=== PATIENT | female | born 1990 | race American Indian/Alaskan Native ===

== ENCOUNTER 2016-08-30 12:15 | Emergency (ER) | payer OTHER ==
[2016-08-30 12:32] VITALS: BP 141/88
[2016-08-30] MEDS ORDERED: CLEOCIN IM ONE (14:27)
[2016-08-30] MEDS ORDERED: NORCO 5/325 PO ONE (14:27)
[2016-08-30] MEDS ORDERED: ZOFRAN ODT PO ONE (14:27)
--- NOTE | 2016-08-30 14:38 | Emergency Department Report ---
ED ENT HPI - General Chief complaint: Dental/Oral Stated complaint: RT SIDE TOOTHACE Time Seen by Provider: 08/30/16 14:17 Source: patient Mode of arrival: Ambulatory Limitations: No Limitations - History of Present Illness Initial comments: PT c/o toothache x 1 week. PT states the last time she saw a Dentist was over 2 years ago. PT states her jaw has been swollen x 3 days. PT states this morning she noticed a bad taste in her mouth and she has noticed some blood. PT states she has tried taking Aleve, Motrin, ASA and Tylenol for pain but no relief. PT states last dose of OTC medication was last night. MD complaint: tooth pain Onset/Timin -: Gradual, week(s) Location: tooth # 1 - pain and gum edema Severity scale (0 -10): 10 Quality: sharp Consistency: constant Worsens with: other (palpation ) Context- Dental: history of dental caries, poor dental care (last dental visit over 2 years ago ) Associated Symptoms: gum swelling, toothache. denies: fever, cough, sore throat - Related Data Previous Rx's Medication Instructions Recorded Last Taken Type ALBUTEROL Inhaler [ProAir HFA 2 puff IH QID PRN #1 inhalation 03/20/15 Unknown Rx Inhaler] Albuterol *Only Ed* [Proventil 2.5 mg IH Q6H PRN #30 nebu 03/20/15 Unknown Rx 0.5% NEBS] Acetaminophen/Codeine [Tylenol #3] 1 tab PO Q6H PRN #12 tab 08/30/16 Unknown Rx Clindamycin [Clindamycin CAP] 300 mg PO Q8H #30 cap 08/30/16 Unknown Rx Allergies Allergy/AdvReac Type Severity Reaction Status Date / Time egg Allergy Rash Verified 03/20/15 02:17 Penicillins Allergy Swelling Verified 03/20/15 02:17 tomato Allergy Rash Verified 03/20/15 02:17 ED Dental HPI - General Chief complaint: Dental/Oral Stated complaint: RT SIDE TOOTHACE Time Seen by Provider: 08/30/16 14:17 Source: patient Mode of arrival: Ambulatory Limitations: No Limitations - Related Data Previous Rx's Medication Instructions Recorded Last Taken Type ALBUTEROL Inhaler [ProAir HFA 2 puff IH QID PRN #1 inhalation 03/20/15 Unknown Rx Inhaler] Albuterol *Only Ed* [Proventil 2.5 mg IH Q6H PRN #30 nebu 03/20/15 Unknown Rx 0.5% NEBS] Acetaminophen/Codeine [Tylenol #3] 1 tab PO Q6H PRN #12 tab 08/30/16 Unknown Rx Clindamycin [Clindamycin CAP] 300 mg PO Q8H #30 cap 08/30/16 Unknown Rx Allergies Allergy/AdvReac Type Severity Reaction Status Date / Time egg Allergy Rash Verified 03/20/15 02:17 Penicillins Allergy Swelling Verified 03/20/15 02:17 tomato Allergy Rash Verified 03/20/15 02:17 ED Review of Systems ROS: Stated complaint: RT SIDE TOOTHACE Other details as noted in HPI Comment: All other systems reviewed and negative Constitutional: denies: chills, fever ENT: dental pain, other (bad taste in mouth, swallowing makes pt feel nauseated - swelling to R lower jaw). denies: throat pain Respiratory: denies: cough Gastrointestinal: nausea. denies: abdominal pain, vomiting Neurological: headache ED Past Medical Hx - Past Medical History Hx Asthma: Yes Additional medical history: Anxiety attacks - Surgical History Hx Appendectomy: Yes - Social History Smoking Status: Current Every Day Smoker Substance Use Type: None - Medications Home Medications: Home Medications Medication Instructions Recorded Confirmed Last Taken Type ALBUTEROL Inhaler [ProAir HFA 2 puff IH QID PRN #1 inhalation 03/20/15 Unknown Rx Inhaler] Albuterol *Only Ed* [Proventil 2.5 mg IH Q6H PRN #30 nebu 03/20/15 Unknown Rx 0.5% NEBS] Acetaminophen/Codeine [Tylenol #3] 1 tab PO Q6H PRN #12 tab 08/30/16 Unknown Rx Clindamycin [Clindamycin CAP] 300 mg PO Q8H #30 cap 08/30/16 Unknown Rx ED Physical Exam - General Limitations: No Limitations General appearance: alert, other (appears in pain ) - Head Head exam: Present: atraumatic, normocephalic, other (R jaw swelling noted. ) - Eye Eye exam: Present: normal appearance. Absent: conjunctival injection - ENT ENT exam: Present: normal orophraynx, mucous membranes moist, normal external ear exam - Expanded ENT Exam Expanded TM/Canal exam: Cerumen Impaction: Right TM, Left TM Mouth exam: Absent: drooling, trismus Teeth exam: Present: dental caries, dental tenderness # (tooth 27 and 29, tooth 28 abscent. ), gingival enlargement (+ abscess ) Throat exam: Positive: normal inspection. Negative: tonsillar erythema, tonsillomegaly, tonsillar exudate - Neck Neck exam: Present: normal inspection. Absent: tenderness - Respiratory Respiratory exam: Present: normal lung sounds bilaterally. Absent: respiratory distress - Cardiovascular Cardiovascular Exam: Present: regular rate, normal rhythm, normal heart sounds - GI/Abdominal GI/Abdominal exam: Present: soft. Absent: tenderness - Extremities Exam Extremities exam: Present: normal inspection, full ROM - Back Exam Back exam: Present: normal inspection, full ROM - Neurological Exam Neurological exam: Present: alert, oriented X3 - Psychiatric Psychiatric exam: Present: normal affect, normal mood - Skin Skin exam: Present: warm, dry, intact, erythema (to R mandible ) ED Course Vital Signs 08/30/16 12:28 Temperature 98.7 F Pulse Rate 56 L Respiratory 20 Rate Blood Pressure 141/88 O2 Sat by Pulse 100 Oximetry - Reevaluation(s) Reevaluation #1: 08/30/16 15:42 PT aware of lab result. PT gives verbal consent for I and D of abscess. PT aware of cerumen impaction on PE. PT reports always having wax in her ears, she states no improvement after cleaning ears with qtips. PT given verbal instructions on the proper way to clean ears. Reevaluation #2: 08/30/16 16:21 pt was able to tolerate po liquids while in ED. PT tolerated needle aspiration of abscess. PT aware she will need close dental follow up. PT given strict return precautions. - I & D Right Lower Jaw Type of Procedure: Simple Site: tooth 28 Blade Size: 18 guage needle Progress: 0.5cc lidocaine 1% injected to site. 18 gauge needle used to aspirate small amount of purulent drainage. - Pulse Oximetry Interpretation Digit-Finger Initial Pulse Oximetry Readin Actions Taken: none ED Medical Decision Making - Differential Diagnosis toothache, dental abscess, Critical Care Time: No Critical care attestation.: If time is entered above; I have spent that time in minutes in the direct care of this critically ill patient, excluding procedure time. ED Disposition Clinical Impression: Dental abscess, Bilateral impacted cerumen Disposition: DISCHARGED TO HOME OR SELFCARE Is pt being admited?: No Does the pt Need Aspirin: No Condition: Stable Instructions: Dental Abscess (ED) Additional Instructions: good oral hygiene Swish and spit with warm salt water four times a day Finish all antibiotics, you can take them with food if they are making you nauseated No driving or ETOH after taking Tylenol #3 Continue taking OTC Aleve Prescriptions: Acetaminophen/Codeine [Tylenol #3] 1 tab PO Q6H PRN #12 tab PRN Reason: Pain , Severe (7-10) Clindamycin [Clindamycin CAP] 300 mg PO Q8H #30 cap Referrals: [facility] [Outside] - 3-5 Days FALLON LEIVA MD [Staff Physician] - 3-5 Days PRIMARY CARE, [Primary Care Provider] - 3-5 Days Forms: Work/School Release Form(ED) Time of Disposition: 16:23
[2016-08-30] MEDS ORDERED: XYLOCAINE 1% MPF 5 mL INFILTRATI ONE (15:44)
== END 2016-08-30 16:28 | disposition home or self-care (01) ==
LOC: ED 12:15
DX: K04.7 Periapical abscess without sinus (principal); H61.23 Impacted cerumen, bilateral; J45.909 Unspecified asthma, uncomplicated; F17.200 Nicotine dependence, unspecified, uncomplicated; Z88.0 Allergy status to penicillin; Z91.012 Allergy to eggs; Z91.018 Allergy to other foods
CPT/HCPCS: 81025; 96372; Q0162

== ENCOUNTER 2017-09-07 12:06 | Emergency (ER) | payer OTHER ==
[2017-09-07] MEDS ORDERED: TYLENOL PO ONE (13:10)
--- NOTE | 2017-09-07 13:12 | Emergency Department Report ---
Blank Doc - Documentation Documentation: Patient is a 26-year-old [place] Citizen female who is presenting with low vaginal discomfort as well as vaginal bleeding. Patient states that when she wiped to go to bathroom this morning she saw blood. Patient is . Patient does not know how far along she is she knows that she took a test at home which was positive. Patient's had 3 months of abnormal periods. Patient will be receiving an ultrasound as well as a beta Quant and urinalysis.
[2017-09-07 14:06] LABS: Bilirubin,Urine NEG (Negative); Blood,Urine LG (Negative); Color,Urine Yellow (Yellow); Mucus,Urine FEW /HPF; Protein,Urine <15 mg/dL mg/dL (Negative); Urobilinogen,Urine < 2.0 mg/dL (<2.0)
--- NOTE | 2017-09-07 15:12 | Ultrasound Report ---
Pelvic and transvaginal sonography: History: Vaginal bleeding. Findings: Uterus measures ultrasound a 3.3 x 4.6 cm. Endometrial thickness 5 mm. No fluid or mass within the endometrium. Right ribs 8.5 x 2.2 x 2.2 cm. No mass. Left ovary 3.1 x 1.9 x 2.5 cm. Cyst in the left ovary measures 6.5 cm. Minimal fluid in the cul-de-sac. Impression: Cyst left ovary. Minimal fluid in the cul-de-sac
--- NOTE | 2017-09-07 15:43 | Emergency Department Report ---
ED Female HPI - General Chief complaint: Abdominal Pain Stated complaint: ABD PAIN Time Seen by Provider: 09/07/17 12:53 Source: patient Mode of arrival: Ambulatory Limitations: No Limitations - History of Present Illness Initial comments: 26F past medical history appendectomy, anxiety presents for evaluation of lower abdominal pain. Patient states that she had positive test recently. Has had abnormal menses for several months. Denies fevers chills nausea vomiting. Patient is awake alert and oriented 3 nontoxic-appearing. Denies dysuria or hematuria or increased urinary frequency. States she has had some intermittent vaginal bleeding. MD Complaint: vaginal bleeding -: month(s) Severity: mild Severity scale (0 -10): 3 Quality: cramping Consistency: intermittent Improves with: none Worsens with: none Are you Now?: No Last Menstrual Period: 08/06/17 EDC: 05/13/18 Associated Symptoms: vaginal bleeding - Related Data Sexually active: Yes Previous Rx's Medication Instructions Recorded Last Taken Type ALBUTEROL Inhaler [ProAir HFA 2 puff IH QID PRN #1 inhalation 03/20/15 Unknown Rx Inhaler] Albuterol *Only Ed* [Proventil 2.5 mg IH Q6H PRN #30 nebu 03/20/15 Unknown Rx 0.5% NEBS] Acetaminophen/Codeine [Tylenol #3] 1 tab PO Q6H PRN #12 tab 08/30/16 Unknown Rx Clindamycin [Clindamycin CAP] 300 mg PO Q8H #30 cap 08/30/16 Unknown Rx Ibuprofen [Motrin] 600 mg PO Q8H PRN #20 tablet 09/07/17 Unknown Rx Allergies Allergy/AdvReac Type Severity Reaction Status Date / Time egg Allergy Rash Verified 03/20/15 02:17 Penicillins Allergy Swelling Verified 03/20/15 02:17 tomato Allergy Rash Verified 03/20/15 02:17 ED Review of Systems ROS: Stated complaint: ABD PAIN Other details as noted in HPI Constitutional: denies: chills, fever Eyes: denies: eye pain, eye discharge, vision change ENT: denies: ear pain, throat pain Respiratory: denies: cough, shortness of breath, wheezing Cardiovascular: denies: chest pain, palpitations Endocrine: no symptoms reported Gastrointestinal: denies: abdominal pain, nausea, diarrhea Genitourinary: abnormal menses. denies: urgency, dysuria, discharge Musculoskeletal: denies: back pain, joint swelling, arthralgia Skin: denies: rash, lesions Neurological: denies: headache, weakness, paresthesias Psychiatric: denies: anxiety, depression Hematological/Lymphatic: denies: easy bleeding, easy bruising ED Past Medical Hx - Past Medical History Hx Asthma: Yes Additional medical history: Anxiety attacks - Surgical History Hx Appendectomy: Yes - Social History Smoking Status: Never Smoker Substance Use Type: None - Medications Home Medications: Home Medications Medication Instructions Recorded Confirmed Last Taken Type ALBUTEROL Inhaler [ProAir HFA 2 puff IH QID PRN #1 inhalation 03/20/15 Unknown Rx Inhaler] Albuterol *Only Ed* [Proventil 2.5 mg IH Q6H PRN #30 nebu 03/20/15 Unknown Rx 0.5% NEBS] Acetaminophen/Codeine [Tylenol #3] 1 tab PO Q6H PRN #12 tab 08/30/16 Unknown Rx Clindamycin [Clindamycin CAP] 300 mg PO Q8H #30 cap 08/30/16 Unknown Rx Ibuprofen [Motrin] 600 mg PO Q8H PRN #20 tablet 09/07/17 Unknown Rx ED Physical Exam - General Limitations: No Limitations General appearance: alert, in no apparent distress - Head Head exam: Present: atraumatic, normocephalic - Eye Eye exam: Present: normal appearance, PERRL, EOMI - ENT ENT exam: Present: mucous membranes moist - Neck Neck exam: Present: normal inspection - Respiratory Respiratory exam: Present: normal lung sounds bilaterally. Absent: respiratory distress - Cardiovascular Cardiovascular Exam: Present: regular rate, normal rhythm. Absent: systolic murmur, diastolic murmur, rubs, gallop - GI/Abdominal GI/Abdominal exam: Present: soft (abdomen soft nontender nondistended), normal bowel sounds - External exam: Present: normal external exam Speculum exam: Present: normal speculum exam Bi-manual exam: Present: normal bi-manual exam - Extremities Exam Extremities exam: Present: normal inspection - Back Exam Back exam: Present: normal inspection - Neurological Exam Neurological exam: Present: alert, oriented X3, CN II-XII intact, normal gait - Psychiatric Psychiatric exam: Present: normal affect, normal mood - Skin Skin exam: Present: warm, dry, intact, normal color. Absent: rash ED Course Vital Signs 09/07/17 12:09 Temperature 98.6 F Pulse Rate 79 Respiratory 16 Rate Blood Pressure 121/77 ED Medical Decision Making - Medical Decision Making A/P: Irregular menses, test, missed AB 1-hCG level negative, ultrasound shows a left-sided ovarian cyst no progressive conception or IUP. RH+ 2-follow-up with SHIPPING/RECEIVING CLERK 3-Motrin when necessary Critical care attestation.: If time is entered above; I have spent that time in minutes in the direct care of this critically ill patient, excluding procedure time. ED Disposition Clinical Impression: test negative, Missed Disposition: - TO HOME OR SELFCARE Is pt being admited?: No Does the pt Need Aspirin: No Condition: Stable Instructions: Ovarian Cyst (ED), Spontaneous Miscarriage (ED) Prescriptions: Ibuprofen [Motrin] 600 mg PO Q8H PRN #20 tablet PRN Reason: Pain Referrals: [facility] [Provider Group] - 3-5 Days [facility] [Provider Group] - 3-5 Days Forms: Work/School Release Form(ED) Time of Disposition: 15:46
[2017-09-07 15:59] VITALS: BP 131/76
== END 2017-09-07 15:57 | disposition home or self-care (01) ==
LOC: ED 12:06
DX: O02.1 Missed abortion (principal); Z91.012 Allergy to eggs; Z88.0 Allergy status to penicillin; Z91.018 Allergy to other foods
CPT/HCPCS: 36415; 76830; 76856; 81001; 84702; 86900; 86901; 99284

== ENCOUNTER 2019-01-17 13:00 | Emergency (ER) | payer SELFPAY ==
[2019-01-17 13:08] VITALS: BP 128/77
--- NOTE | 2019-01-17 13:11 | Emergency Department Report ---
ED ENT HPI - General Chief complaint: Dental/Oral Stated complaint: LFT SIDE MOUTH/EAR PAIN Time Seen by Provider: 01/17/19 13:05 Source: patient Mode of arrival: Ambulatory Limitations: No Limitations - History of Present Illness Initial comments: This is a 28-year-old female nontoxic well in appearance with no signs of distress presents to the ED with complaint of toothache. Patient denies any facial swelling. Denies following up with a dentist. Denies any fever, chills, headache, nausea, vomiting, chest pain or SOB. Denies any other complaints. Denies any allergies. MD complaint: tooth pain -: week(s) Location: tooth # Severity: mild Severity scale (0 -10): 8 Quality: aching Consistency: constant Improves with: none Worsens with: none Context- Dental: history of dental caries, poor dental care Associated Symptoms: gum swelling, toothache. denies: fever, cough, pain with swallowing, sore throat, tinnitus, hearing loss, discharge from ear, rhinorrhea - Related Data Previous Rx's Medication Instructions Recorded Last Taken Type ALBUTEROL Inhaler (OR & NICU) 2 puff IH QID PRN #1 inhalation 03/20/15 Unknown Rx [ProAir HFA Inhaler] Albuterol *Only Ed* [Proventil 2.5 mg IH Q6H PRN #30 nebu 03/20/15 Unknown Rx 0.5% NEBS] Acetaminophen/Codeine [Tylenol #3] 1 tab PO Q6H PRN #12 tab 08/30/16 Unknown Rx Clindamycin [Clindamycin CAP] 300 mg PO Q8H #30 cap 08/30/16 Unknown Rx Ibuprofen [Motrin] 600 mg PO Q8H PRN #20 tablet 09/07/17 Unknown Rx Acetaminophen/Codeine [Tylenol 1 tab PO Q6H PRN #12 tab 01/17/19 Unknown Rx /Codeine # 3 tab] Chlorhexidine Mouthwash [Peridex] 15 ml MM BID #1 bottle 01/17/19 Unknown Rx Clindamycin [Clindamycin CAP] 300 mg PO Q8H #21 cap 01/17/19 Unknown Rx Allergies Allergy/AdvReac Type Severity Reaction Status Date / Time egg Allergy Rash Verified 03/20/15 02:17 Penicillins Allergy Swelling Verified 03/20/15 02:17 tomato Allergy Rash Verified 03/20/15 02:17 ED Dental HPI - General Chief complaint: Dental/Oral Stated complaint: LFT SIDE MOUTH/EAR PAIN Time Seen by Provider: 01/17/19 13:05 Source: patient Mode of arrival: Ambulatory Limitations: No Limitations - Related Data Previous Rx's Medication Instructions Recorded Last Taken Type ALBUTEROL Inhaler (OR & NICU) 2 puff IH QID PRN #1 inhalation 03/20/15 Unknown Rx [ProAir HFA Inhaler] Albuterol *Only Ed* [Proventil 2.5 mg IH Q6H PRN #30 nebu 03/20/15 Unknown Rx 0.5% NEBS] Acetaminophen/Codeine [Tylenol #3] 1 tab PO Q6H PRN #12 tab 08/30/16 Unknown Rx Clindamycin [Clindamycin CAP] 300 mg PO Q8H #30 cap 08/30/16 Unknown Rx Ibuprofen [Motrin] 600 mg PO Q8H PRN #20 tablet 09/07/17 Unknown Rx Acetaminophen/Codeine [Tylenol 1 tab PO Q6H PRN #12 tab 01/17/19 Unknown Rx /Codeine # 3 tab] Chlorhexidine Mouthwash [Peridex] 15 ml MM BID #1 bottle 01/17/19 Unknown Rx Clindamycin [Clindamycin CAP] 300 mg PO Q8H #21 cap 01/17/19 Unknown Rx Allergies Allergy/AdvReac Type Severity Reaction Status Date / Time egg Allergy Rash Verified 03/20/15 02:17 Penicillins Allergy Swelling Verified 03/20/15 02:17 tomato Allergy Rash Verified 03/20/15 02:17 ED Review of Systems ROS: Stated complaint: LFT SIDE MOUTH/EAR PAIN Other details as noted in HPI Constitutional: denies: chills, fever Eyes: denies: eye pain, eye discharge, vision change ENT: dental pain. denies: ear pain, throat pain Respiratory: denies: cough, shortness of breath, wheezing Cardiovascular: denies: chest pain, palpitations Endocrine: no symptoms reported Gastrointestinal: denies: abdominal pain, nausea, diarrhea Genitourinary: denies: urgency, dysuria, discharge Musculoskeletal: denies: back pain, joint swelling, arthralgia Skin: denies: rash, lesions Neurological: denies: headache, weakness, paresthesias Psychiatric: denies: anxiety, depression Hematological/Lymphatic: denies: easy bleeding, easy bruising ED Past Medical Hx - Past Medical History Hx Asthma: Yes Additional medical history: Anxiety attacks - Surgical History Hx Appendectomy: Yes - Social History Smoking Status: Never Smoker Substance Use Type: None - Medications Home Medications: Home Medications Medication Instructions Recorded Confirmed Last Taken Type ALBUTEROL Inhaler (OR & NICU) 2 puff IH QID PRN #1 inhalation 03/20/15 Unknown Rx [ProAir HFA Inhaler] Albuterol *Only Ed* [Proventil 2.5 mg IH Q6H PRN #30 nebu 03/20/15 Unknown Rx 0.5% NEBS] Acetaminophen/Codeine [Tylenol #3] 1 tab PO Q6H PRN #12 tab 08/30/16 Unknown Rx Clindamycin [Clindamycin CAP] 300 mg PO Q8H #30 cap 08/30/16 Unknown Rx Ibuprofen [Motrin] 600 mg PO Q8H PRN #20 tablet 09/07/17 Unknown Rx Acetaminophen/Codeine [Tylenol 1 tab PO Q6H PRN #12 tab 01/17/19 Unknown Rx /Codeine # 3 tab] Chlorhexidine Mouthwash [Peridex] 15 ml MM BID #1 bottle 01/17/19 Unknown Rx Clindamycin [Clindamycin CAP] 300 mg PO Q8H #21 cap 01/17/19 Unknown Rx ED Physical Exam - General Limitations: No Limitations General appearance: alert, in no apparent distress - Head Head exam: Present: atraumatic, normocephalic - Expanded ENT Exam Expanded Ear exam: Present: normal external inspection Mouth exam: Present: normal external inspection. Absent: drooling, trismus, muffled voice Teeth exam: Present: dental caries, fractured tooth #, dental tenderness #, gingival enlargement, other (no swelling) 1 - Fractured, Dental Tenderness Throat exam: Positive: normal inspection, other (uvula midline). Negative: tonsillar erythema, tonsillomegaly, tonsillar exudate, R peritonsillar mass, L peritonsillar mass - Neck Neck exam: Present: normal inspection, full ROM. Absent: tenderness, meningismus, lymphadenopathy - Extremities Exam Extremities exam: Present: normal inspection, full ROM - Back Exam Back exam: Present: normal inspection, full ROM - Neurological Exam Neurological exam: Present: alert, oriented X3, normal gait - Psychiatric Psychiatric exam: Present: normal affect, normal mood - Skin Skin exam: Present: warm, dry, intact, normal color. Absent: rash ED Course - Reevaluation(s) Reevaluation #1: 01/17/19 13:08 Patient is speaking in full sentences with no signs of distress noted. ED Medical Decision Making - Medical Decision Making Patient was instructed to Follow-up with a dentist doctor in 3-5 days or if symptoms worsen and continue return to emergency room as soon as possible. At time of discharge, the patient does not seem toxic or ill in appearance. No acute signs of distress noted. Patient agrees to discharge treatment plan of care. No further questions noted by the patient. Critical care attestation.: If time is entered above; I have spent that time in minutes in the direct care of this critically ill patient, excluding procedure time. ED Disposition Clinical Impression: Dental caries, Gingivitis Disposition: DC- TO HOME OR SELFCARE Is pt being admited?: No Does the pt Need Aspirin: No Condition: Stable Instructions: Acetaminophen/Codeine (By mouth), Dental Caries (ED), Gingivitis (ED) Additional Instructions: Follow-up with a dentist doctor in 3-5 days or if symptoms worsen and continue return to emergency room as soon as possible. Prescriptions: Clindamycin [Clindamycin CAP] 300 mg PO Q8H #21 cap Chlorhexidine Mouthwash [Peridex] 15 ml MM BID #1 bottle Acetaminophen/Codeine [Tylenol /Codeine # 3 tab] 1 tab PO Q6H PRN #12 tab PRN Reason: Pain , Severe (7-10) Referrals: PRIMARY CARE, [Referring] - 3-5 Days GIOVANNY LANDIS MD [Staff Physician] - 3-5 Days [facility] [Outside] - 3-5 Days Forms: Work/School Release Form(ED)
== END 2019-01-17 13:36 | disposition home or self-care (01) ==
LOC: ED 13:00
DX: K02.9 Dental caries, unspecified (principal); K05.10 Chronic gingivitis, plaque induced; J45.909 Unspecified asthma, uncomplicated; F41.9 Anxiety disorder, unspecified; K03.81 Cracked tooth; K06.1 Gingival enlargement; Z79.899 Other long term (current) drug therapy; Z91.012 Allergy to eggs; Z88.0 Allergy status to penicillin; Z91.018 Allergy to other foods

== ENCOUNTER 2019-08-01 12:03 | Emergency (ER) | payer SELFPAY ==
--- NOTE | 2019-08-01 12:17 | Emergency Department Report ---
Blank Doc - Documentation Documentation: 28-year-old female that presents with headache and blurry vision. Descirbes h eadache as worse and different type of headache. Denies any head injuries or trauma. Exam: neuro exam within normal limits This initial assessment/diagnostic orders/clinical plan/treatment(s) is/are subject to change based on patient's health status, clinical progression and re- assessment by fellow clinical providers in the ED. Further treatment and workup at subsequent clinical providers discretion. Patient/guardians urged not to elope from the ED as their condition may be serious if not clinically assessed and managed. Initial orders include: 1- Patient sent to [facility] for further evaluation and treatment
[2019-08-01 12:18] VITALS: BP 128/77
== END 2019-08-01 13:55 ==
LOC: ED 12:03
DX: G43.909 Migraine, unspecified, not intractable, without status migrainosus (principal)
CPT/HCPCS: 99281

== ENCOUNTER 2020-11-16 20:46 | Emergency (ER) | payer OTHER ==
[2020-11-16 20:58] VITALS: BP 124/77
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
== END 2020-11-16 22:50 | disposition home or self-care (01) ==
LOC: ED 20:46
DX: S39.012A Strain of muscle, fascia and tendon of lower back, initial encounter (principal); F17.200 Nicotine dependence, unspecified, uncomplicated; J45.909 Unspecified asthma, uncomplicated; Z90.49 Acquired absence of other specified parts of digestive tract; Z79.899 Other long term (current) drug therapy; Z88.0 Allergy status to penicillin; Z91.012 Allergy to eggs; Z91.018 Allergy to other foods; V49.49XA Driver injured in collision with other motor vehicles in traffic accident, initial encounter; Y92.410 Unspecified street and highway as the place of occurrence of the external cause; Y93.89 Activity, other specified; Y99.8 Other external cause status

== ENCOUNTER 2021-07-12 12:46 | Emergency (ER) | payer OTHER ==
--- NOTE | 2021-07-12 13:39 | Emergency Department Report ---
ED Head Trauma HPI - General Chief complaint: Head Injury Stated complaint: HIT HEAD ON SHELF Time Seen by Provider: 07/12/21 13:20 Source: patient Mode of arrival: Ambulatory Limitations: No Limitations - History of Present Illness Initial comments: Chief complaint: "My job sent me here." HPI: This is a 30-year-old female with history of asthma who presents with head injury while working. Her head struck the corner of a cabinet. She has an abrasion in her front scalp. No loss of consciousness. She had transient blurry vision which lasted several seconds. No vomiting. No other injury. Pain is mild. Complaint: head injury -: Sudden, This afternoon Mechanism of Injury: work related injury Location: frontal Loss of Consciousness: no Previous Trauma to this Area: No Place: work Radiation: none Severity: mild Severity scale (0 -10): 3 Consistency: constant Other Injuries: none, other (Superficial abrasion) Associated Symptoms: denies other symptoms - Related Data Previous Rx's Medication Instructions Recorded Last Taken Type Ibuprofen [Motrin 600 MG tab] 600 mg PO Q8H PRN #20 tablet 11/16/20 Unknown Rx methOCARBAMOL [Robaxin TAB] 500 mg PO Q6H PRN #40 tablet 11/16/20 Unknown Rx Allergies/Adverse reactions: Allergies Allergy/AdvReac Type Severity Reaction Status Date / Time egg Allergy Rash Verified 07/12/21 13:14 Penicillins Allergy Swelling Verified 07/12/21 13:14 tomato Allergy Rash Verified 07/12/21 13:14 ED Review of Systems ROS: Stated complaint: HIT HEAD ON SHELF Other details as noted in HPI Comment: All other systems reviewed and negative Constitutional: denies: chills Respiratory: denies: cough, shortness of breath Cardiovascular: denies: chest pain ED Past Medical Hx - Past Medical History Previous Medical History?: Yes Hx Asthma: Yes Additional medical history: Anxiety attacks - Surgical History Past Surgical History?: Yes Hx Appendectomy: Yes - Social History Smoking Status: Current Every Day Smoker Substance Use Type: None - Medications Home Medications: Home Medications Medication Instructions Recorded Confirmed Last Taken Type Ibuprofen [Motrin 600 MG tab] 600 mg PO Q8H PRN #20 tablet 11/16/20 Unknown Rx methOCARBAMOL [Robaxin TAB] 500 mg PO Q6H PRN #40 tablet 11/16/20 Unknown Rx ED Physical Exam - General Limitations: No Limitations General appearance: alert, in no apparent distress - Head Head exam: Present: other (3 cm central superficial abrasion skin avulsion of the scalp vertical beginning from the hairline, underlying superficial 3 cm area of swelling without bleeding) - Eye Eye exam: Present: normal appearance - ENT ENT exam: Present: mucous membranes moist - Neck Neck exam: Present: normal inspection - Respiratory Respiratory exam: Present: normal lung sounds bilaterally. Absent: respiratory distress, wheezes, rales, rhonchi - Cardiovascular Cardiovascular Exam: Present: regular rate, normal rhythm, normal heart sounds. Absent: systolic murmur, diastolic murmur, rubs, gallop - GI/Abdominal GI/Abdominal exam: Present: soft, normal bowel sounds. Absent: distended, tenderness, guarding, rebound - Extremities Exam Extremities exam: Present: normal inspection - Back Exam Back exam: Present: normal inspection - Neurological Exam Neurological exam: Present: alert, oriented X3, normal gait - Expanded Neurological Exam Expanded Patient oriented to: Present: person, place, time Speech: Present: fluid speech Cranial nerves: EOM's Intact: Normal Sensory exam: Upper Extremity Light Touch: Normal Motor strength exam: RUE: 5, LUE: 5, RLE: 5, LLE: 5 Best Eye Response (Vee): (4) open spontaneously Best Motor Response ([place]): (6) obeys commands Best Verbal Response (Vee): (5) oriented [place] Total: 15 - Psychiatric Psychiatric exam: Present: normal affect, normal mood - Skin Skin exam: Present: warm, dry, normal color. Absent: rash ED Course Vital Signs 07/12/21 13:11 Temperature 98.4 F Pulse Rate 66 Respiratory 16 Rate Blood Pressure 139/80 O2 Sat by Pulse 100 Oximetry - Medical Decision Making Close head injury without loss of consciousness. Currently neurologically intact. Superficial skin avulsion does not require suture repair. Recommended rest hydration ibuprofen as needed. I have completed documentation workman compensation form as requested by employee and employer. Critical care attestation.: If time is entered above; I have spent that time in minutes in the direct care of this critically ill patient, excluding procedure time. ED Disposition Clinical Impression: Closed head injury, Scalp hematoma, Scalp abrasion Disposition: HOME / SELF CARE / HOMELESS Is pt being admited?: No Does the pt Need Aspirin: No Condition: Stable Instructions: Head Injury, Adult, [id number], Facial or Scalp Contusion, [id number] Forms: Work/School Release Form(ED)
[2021-07-12 14:37] VITALS: BP 122/78
== END 2021-07-12 14:37 | disposition home or self-care (01) ==
LOC: ED 12:46
DX: S09.90XA Unspecified injury of head, initial encounter (principal); S00.03XA Contusion of scalp, initial encounter; S00.01XA Abrasion of scalp, initial encounter; Z88.0 Allergy status to penicillin; F17.200 Nicotine dependence, unspecified, uncomplicated; J45.909 Unspecified asthma, uncomplicated; X58.XXXA Exposure to other specified factors, initial encounter; Y93.89 Activity, other specified; Y92.89 Other specified places as the place of occurrence of the external cause; Y99.8 Other external cause status
CPT/HCPCS: 99282